=== PATIENT | male | born 1975 | race Caucasian/White ===

== ENCOUNTER 2021-12-10 18:44 | Emergency (ER) | payer OTHER ==
[~2021-12-10] VITALS: Ht 165.1 cm; Wt 97.5 kg
[2021-12-10 18:52] VITALS: BP 156/88
--- NOTE | 2021-12-10 18:59 | NUR ---
PT AMBULATED TO BED #4
[2021-12-10] MEDS ORDERED: TRAM50TA1 PO (19:45)
--- NOTE | 2021-12-10 19:45 | NUR ---
C/O OF LEFT RIB PAIN AFTER FALL X2DAYS AGO. DENIES LOC, DENIES HITTING HEAD. NKA PMH: DENIES
[2021-12-10 20:20] VITALS: BP 156/88
--- NOTE | 2021-12-10 20:20 | NUR ---
Patient discharged with v/s stable. Written and verbal after care instructions given and explained. Patient verbalized understanding. Ambulatory with steady gait. All questions addressed prior to discharge. Advised to follow up with PMD.
== END 2021-12-10 20:20 | disposition home or self-care (01) ==
LOC: MED 18:44
DX: S22.32XA Fracture of one rib, left side, initial encounter for closed fracture (principal); W01.198A Fall on same level from slipping, tripping and stumbling with subsequent striking against other object, initial encounter; Y93.89 Activity, other specified; Y92.89 Other specified places as the place of occurrence of the external cause; Y99.8 Other external cause status
CPT/HCPCS: 71101; 99283

== ENCOUNTER 2022-05-23 05:29 | Emergency (ER) | payer OTHER ==
[~2022-05-23] VITALS: Ht 165.1 cm; Wt 95.3 kg
[~2022-05-23 05:29] MED LIST: TRAM-748 PO
[2022-05-23 05:31] VITALS: BP 105/76
--- NOTE | 2022-05-23 05:42 | NUR ---
PT TO 8
--- NOTE | 2022-05-23 05:44 | NUR ---
UA TO LAB
--- NOTE | 2022-05-23 06:05 | NUR ---
Patient being evaluated by physician at bedside.
[2022-05-23] MEDS ORDERED: NACL 0.9% 1,000 ML IV ONE (06:10)
[2022-05-23] MEDS ORDERED: ONDANSETRON 4 MG/2 ML VIAL IVP ONE (06:10)
[2022-05-23] MEDS ORDERED: KETOROLAC 30 MG/ML VIAL IVP ONE (06:10)
[2022-05-23 06:49] LABS: BASOPHILS % (AUTO) 0.3 % (0.0-2.0); EOSINOPHILS # (AUTO) 0.1 K/uL (0-0.4); EOSINOPHILS % (AUTO) 0.9 % (0.0-4.0); HEMATOCRIT 42.5 % (36-52); HEMOGLOBIN 14.5 g/dL (12.0-18.0); LYMPHOCYTES # (AUTO) 1.2 K/uL (2.0-11.5); LYMPHOCYTES % (AUTO) 17.8 % (20.5-51.1); MEAN CORPUSCULAR HEMOGLOBIN 31 pg (27-31); MEAN CORPUSCULAR HGB CONC 34 g/dL (33-37); MEAN CORPUSCULAR VOLUME 89.8 fL (80-94); MONOCYTES # (AUTO) 0.3 K/uL (0.8-1.0); NEUTROPHILS # (AUTO) 5.3 K/uL (1.8-7.7); PLATELET COUNT (AUTO) 248 K/uL (140-450); RED BLOOD CELL COUNT(AUTO) 4.73 MIL/uL (4.20-6.10); RED CELL DISTRIBUTION WIDTH 14.5 % (11.6-13.7); WHITE BLOOD COUNT (AUTO) 6.9 K/uL (4.8-10.8)
[2022-05-23 06:58] LABS: APPEARANCE,URINE CLEAR (CLEAR); BILIRUBIN,URINE 1+ (NEGATIVE); BLOOD, URINE 2+ (NEGATIVE); COLOR,URINE YELLOW (YELLOW); LEUKOCYTE ESTERASE ,URINE NEGATIVE (NEGATIVE); NITRITE, URINE NEGATIVE (NEGATIVE); UGLUCOSE 3+ (NEGATIVE)
[2022-05-23 07:14] LABS: ALBUMIN 2.8 g/dL (3.4-5.0); ANION GAP 15.1 (8-16); CARBON DIOXIDE 21.6 mmol/L (21-32); CREATININE 1.8 mg/dL (0.6-1.3); POTASSIUM 3.7 mmol/L (3.5-5.1); TOTAL BILIRUBIN 0.5 mg/dL (0.0-1.0)
--- NOTE | 2022-05-23 07:20 | NUR ---
Report recived from ADRIANA Evans for transfer of care.
[2022-05-23 07:38] LABS: WBC,URINE 0-5 /HPF (0-5); YEAST,URINE None Seen /HPF (None Seen)
[2022-05-23 07:39] LABS: FINE GRANULAR CASTS,URINE 0-10 /LPF (None Seen); TRICHOMONAS,URINE None Seen /HPF (None Seen)
[2022-05-23] MEDS ORDERED: SIME125T38 PO (07:43)
[2022-05-23] MEDS ORDERED: ONDA-188 PO (07:43)
[2022-05-23] MEDS ORDERED: FAMO-92 PO (07:43)
[2022-05-23 07:55] VITALS: BP 137/77
--- NOTE | 2022-05-23 07:55 | NUR ---
Patient discharged with v/s stable. Written and verbal after care instructions given. Patient alert, oriented and verbalized understanding of instructions. Ambulatory with steady gait. All questions addressed prior to discharge. ID band removed. Patient advised to follow up with PMD. Rx of Pepcid, Zofran and Mylanta Gas Minis given. Opportunity to ask questions provided and answered.
--- NOTE | 2022-05-23 07:55 | NUR ---
The patient's care was reviewed and supervised by Sue Dolan RN.
== END 2022-05-23 07:55 | disposition home or self-care (01) ==
LOC: MED 05:29
DX: A08.4 Viral intestinal infection, unspecified (principal)
CPT/HCPCS: 36415; 80053; 81001; 83690; 85025; 96361; 96374; 96375; 99284; J1885; J2405